=== PATIENT | female | born 1960 | race Two or more races ===

== ENCOUNTER 2025-07-16 07:45 | Day surgery (SDC) | payer MEDICAID, SELFPAY ==
[2025-07-15 10:56] VITALS: BMI 36.3
--- NOTE | 2025-07-15 11:20 | EKG_ITS ---
[facility] Test Date: 2025-07-15 Pat Name: ARIA WILLIAMSON Department: Room: - Gender: Female Sys Dir: FREDA : 1960 Requested By: Marciano Castro Order Number: [id number] Reading MD: Marciano Castro Measurements Intervals [place] Rate: 84 P: 53 CT: 165 QRS: 50 QRSD: 84 T: 44 QT: 346 QTc: 410 Interpretive Statements SINUS RHYTHM No previous ECG available for comparison /[id number]
[2025-07-15 12:29] LABS: Basophils # (Auto) 0.0 Thou/mm3 (0.0-0.2); Basophils % (Auto) 1 % (0-2.5); Eosinophils # (Auto) 0.4 Thou/mm3 (0.0-0.5); Eosinophils % (Auto) 5 % (0-10); Hematocrit 37.4 % (36.0-46.0); Hemoglobin 12.0 g/dL (12.0-16.0); Immature Granulocytes Auto 0.03 Thou/mm3 (0.00-0.00); Lymphocytes # (Auto) 3.6 Thou/mm3 (1.0-4.8); Lymphocytes % (Auto) 45 % (10-50); Mean Corpuscular HGB Conc 32.1 g/dl (31.0-37.0); Mean Corpuscular Hemoglobin 27.7 pg (25.0-35.0); Mean Corpuscular Volume 86 fL (80-100); Monocytes # (Auto) 0.6 Thou/mm3 (0.0-0.8); Monocytes % (Auto) 7 % (0-12); Neutrophils # (Auto) 3.4 Thou/mm3 (1.8-7.7); Neutrophils % (Auto) 42 % (37-80); Nucleated Red Blood Cell # 0.00 Thou/mm3 (0.00-0.00); Nucleated Red Blood Cell % 0 /100 WBC (0); Platelet Count 382 Thou/mm3 (140-440); RDW Standard Deviation 47.2 fL (36.4-46.3); Red Blood Count 4.33 Miln/mm3 (4.00-5.20); White Blood Count 8.0 Thou/mm3 (3.6-11.0)
[2025-07-15 12:36] LABS: INR 1.0 (0.9-1.3); Partial Thromboplastin Time 27.6 Seconds (22.0-36.0); Prothrombin Time 10.7 Seconds (9.0-12.2)
[2025-07-15 12:38] LABS: Alanine Aminotransferase 10 U/L (10-49); Albumin, Serum 4.2 gm/dL (3.4-4.8); Albumin/Globulin Ratio 1.6 (1.2-2.2); Alkaline Phosphatase 76 U/L (46-116); Anion Gap 8 (7-16); Aspartate Amino Transferase 16 U/L (0-34); BUN/Creatinine Ratio 23 Ratio (12-20); Bilirubin,Total 0.2 mg/dL (0.3-1.2); Blood Urea Nitrogen 21 mg/dL (9-23); Calcium 8.9 mg/dL (8.3-10.6); Calcium (Corrected) 8.9 mg/dL (8.5-10.1); Carbon Dioxide 27.3 mMol/L (20.0-31.0); Chloride 104 mMol/L (98-107); Creatinine (Component) 0.9 mg/dL (0.6-1.3); Estimated Creatinine Clearance 64.3 mL/min (>60); Globulin 2.7 gm/dL (2.3-3.5); Glucose 195 mg/dL (74-106); Osmolality,Calculated 285 (275-295); Potassium 4.4 mMol/L (3.4-5.1); Sodium 139 mMol/L (136-145); Total Protein 6.9 gm/dL (5.7-8.2); eGFR > 60 See Note
[2025-07-16] VITALS (8 sets, daily range): BP systolic 112–129; BP diastolic 62–79; PULSE 90–96; RESP 14–21; TEMP 36.1–36.7; O2SAT 97–100; BMI 36.3
--- NOTE | 2025-07-16 08:45 | CHAP ---
Prayed with patient before procedure.
--- NOTE | 2025-07-16 11:02 | SUR.PHASEI ---
1044: Pt received in [facility] via gurney. Report from Gerald SCHULTZ and Dr. Ayon. Pt obtunded. Is arousable with minimal movement. Resp even, unlabored. VS stable. Surgical sites x4 to abdomen dressed with gauze secured with hypofix tape. No c/o pain.
--- NOTE | 2025-07-16 11:07 | ESOP_ITS ---
Date of Procedure 07/16/25 Pre Op Diagnosis Right-sided abdominal pain with a gallbladder polyp 11 mm in size Post Op Diagnosis Cholelithiasis no evidence of polyp Procedure Laparoscopic cholecystectomy Findings Patient was found to have 11 mm polyp on the ultrasound but the patient turned out to have a solid single stone gallstone and there was no evidence of any polyps seen. Procedure Description After endotracheal anesthesia was given the patient was placed in supine position and the abdomen was prepped with chloroprep solution and draped in a sterile manner. After time out was performed I injected a few cc of of half percent Marcaine with epinephrine below the umbilicus and I made an incision for about 3 cm in length. The fascia was cleaned and Veress needle was inserted to create a pneumoperitoneum up to 15 mmHg. Then introduced a 12 mm trocar and a 10 mm camera through the fascia and I inspected the intra-abdominal organs as well as the gallbladder and the liver. When I introduced the camera I ran into dense adhesions due to omentum. This omentum was right in the way of the trocar and therefore I could not clearly get into the abdominal cavity. Therefore I placed an epigastric port and then the right lateral port and dissected the omentum before trocar could be advanced through the omentum to visualize the ab dominal cavity and the gallbladder. Another 5 mm trocar was inserted in the epigastric region under direct vision after injecting some local anesthesia. At this time the patient was kept in reverse Trendelenburg position with the left lateral tilt. The third 5 mm trocar was inserted over the mid axillary line under direct vision and a Darwin and Geholly grasper was used to hold the fundus of the gallbladder. The retraction was carried out by the review assistant moving the fundus of the gallbladder towards the right shoulder of the patient to create enough traction. I placed a another 5 mm trocar in the midaxillary line just lateral to the rectus muscle under direct vision. I used a fenestrated grasper to retract the neck of the gallbladder laterally towards the patient's right hip. The Calot's triangle was exposed and I achieved the critical view of safety as follows: I dissected out the fatty tissue from the hepatocystic triangle and cleared this area. I also dissected inferior and posterior to the gallbladder to identify the cystic duct and the gallbladder wall. Then superiorly I dissected along the cystic plate up to lower one third third of the gallbladder to lift the gallbladder from the liver. At this time I confirmed that only 2 structures entering the gallbladder were cystic artery and the cystic duct. The common duct was seen distally but no dissection was carried o ut around the duct. I did not see any need for operative cholangiogram in this patient. The cystic duct was clipped doubly and then divided and cystic artery was similarly dealt with. Then the gallbladder was removed from the liver bed using Harmonic cecilio to control the small blood vessels as the dissection proceeded. Then the gallbladder was from the liver bed completely and delivered through the umbilical port using an Endopouch. The liver bed was coagulated with cautery to obtain satisfactory hemostasis. The trocars were pulled out from the abdominal cavity and the fascia at the umbilical incision was closed with interrupted 0 Ethibond. Subcutaneous tissues was closed with 3- 0 chromic and injected a few cc of half percent Marcaine with epinephrine and the skin was closed with interrupted 4-0 Monocryl stitches at all the trocar sites. Dressing was applied with 2 x 2 and Tegaderm. Patient tolerated the procedure well and returned to recovery room in stable condition. Anesthesia GETA Pathology / specimen Other (Gallbladder and the stone) Estimated Blood Loss 50 Surgeon Jose L Luna MD Surgical Staff Operation Date: 07/16/25 10:15 Case Staff Anesthesiologist: Osvaldo Ahumada RN First Assistant: Lisbeth Sykes
--- NOTE | 2025-07-16 11:07 | SUR.PHASEI ---
1107: Pt resting with no complaints voiced. Resp even, unlabored. VS stable. Surgical sites and dressings remain clean, dry, intact. No c/o pain.
--- NOTE | 2025-07-16 11:29 | SUR.PHASEII ---
1115: Pt has been resting with no complaints voiced. Resp even, unlabored. VS stable. Dressings remain dry, clean, intact. States she has very little pain with movement. 1131: Pt more awake, alert. Is sitting up tolerating po fluids with no difficulty swallowing and no n/v.
--- NOTE | 2025-07-16 12:53 | SUR.PHASEII ---
1200: Pt fully awake, oriented x3. VS stable. Surgical sites to abdomen remain dry, clean, intact. States she has very little pain and only with movement. Pt dressed. Assisted to transport chair. Ambulation steady. Pt and son stated understanding of discharge instructions. Pt discharged from [facility] in stable condition.
--- NOTE | 2025-07-17 13:08 | ESHP_ITS ---
RE: ARIA WILLIAMSON : 1960 DATE OF ADMISSION: 07/16/2025 HISTORY OF PRESENT ILLNESS: This patient was seen by me on 04/22 in my office because of gallstones. Patient is not having much pain. It seems to be this was found as an incidental finding while she was worked up. She had an ultrasound and CT for a lump they found on her right flank. At that time, she was found to have a gallbladder stone which they read as polyp measuring 11 mm in size. Patient was complaining of swelling over the right flank which turned out to be a lipoma. PAST MEDICAL HISTORY: Revealed that she has had a history of asthma, anxiety and cholesterol. PHYSICAL EXAMINATION: Revealed an obese female who is 5 foot 6 inches tall, weighing 198 pounds. Her vital signs are normal. Examination of the head, ears, nose, throat were normal. Examination of neck normal, chest normal, cardiovascular normal. Abdomen showed some tenderness on palpation of the right upper quadrant. Rest of the abdomen is unremarkable. Patient also has a oval mass on the posterior aspect of the right flank which appears to be tender and it has appearance of a lipoma. Examination of lower extremity is normal. Neurological normal. Skin normal. Back normal. REVIEW OF SYSTEMS: Normal. IMPRESSION: 1. Ultrasound of the abdomen showed gallbladder polyp measuring 11 mm and therefore she will probably require cholecystectomy. 2. She will also want to get this painful lump removed which can be done in the office. 3. Patient's gallbladder surgery is scheduled on the . DT: 11::27 TT: 11:36:00 Ref: [id number] - TID: [id number]
== END 2025-07-16 12:00 | disposition home or self-care (01) ==
PROVIDERS: PCP Internal Medicine; Referring Provider Surgery; Visit Provider Surgery
PROC: 0FT44ZZ Resection of Gallbladder, Percutaneous Endoscopic Approach (ICD-10-PCS; CPT 47562; principal; 2025-07-16 10:00)
DX: K80.20 Calculus of gallbladder without cholecystitis without obstruction (principal); Z01.810 Encounter for preprocedural cardiovascular examination; D17.1 Benign lipomatous neoplasm of skin and subcutaneous tissue of trunk
CPT/HCPCS: 47562; 36415; 80053; 85025; 85610; 85730; 93005; A4217; A4649; J0131; J2250; J2704; J3010; J3490